=== PATIENT | male | born 1980 | race Caucasian/White ===

== ENCOUNTER 2017-08-25 09:29 | Outpatient (CLI) | payer MEDICAID | END 2017-08-25 09:30 | disposition critical access hospital (66) | LOC: EMS 09:29 | PROVIDERS: ATTEND Surgery | DX: R46.4 Slowness and poor responsiveness (principal) | CPT/HCPCS: A0425; A0429 ==

== ENCOUNTER 2017-08-25 09:47 | Emergency (ER) | payer MEDICAID ==
[2017-08-25 09:55] VITALS: BP 138/84
--- NOTE | 2017-08-25 09:56 | ED Physician Documentation ---
History of Present Illness - Stated complaint Stated Complaint: HEROIN USE - Chief complaint Chief Complaint: General - History obtained from History obtained from: Patient, EMS - History of Present Illness Timing: Today Pain level max: 0 Pain level now: 0 - Additonal information Additional information: Patient states that he used methamphetamine and heroin this morning, several hours ago and was sleeping in his car when the police came and woke him up. He got out of the car, did not require any intervention such as Narcan. At that point the police reportedly called EMS to take him to the hospital as they told him he would either have to go to the hospital or to [facility]. EMS transported the patient here. Patient currently has no complaints. He does not want to go to rehab. He is not suicidal or homicidal. Review of Systems Constitutional: denies: Fever Nose: denies: Rhinorrhea / runny nose, Congestion Respiratory: denies: Cough GI: denies: Nausea, Vomiting, Diarrhea Skin: denies: Rash Musculoskeletal: denies: Neck pain, Back pain Neurologic: denies: Headache PD PAST MEDICAL HISTORY - Past Medical History Past Medical History: No - Past Surgical History Past Surgical History: Yes Ortho: Other - Allergies Allergies/Adverse Reactions: Allergies Allergy/AdvReac Type Severity Reaction Status Date / Time No Known Drug Allergies Allergy Verified 06/09/14 10:41 - Social History Does the pt smoke?: Yes Smoking Status: Current every day smoker Does the pt drink ETOH?: No Does the pt have substance abuse?: No - Immunizations Immunizations are current?: Yes PD ED PE NORMAL - Vitals Vital signs reviewed: Yes - General General: Alert and oriented X 3, No acute distress, Well developed/nourished - HEENT HEENT: PERRL, Moist mucous membranes - Neck Neck: Supple, no meningeal sign - Cardiac Cardiac: RRR, Strong equal pulses - Respiratory Respiratory: No respiratory distress, Clear bilaterally - Abdomen Abdomen: Soft, Non tender, Non distended - Derm Derm: Warm and dry - Neuro Neuro: Alert and oriented X 3 - Psych Psych: Normal mood, Normal affect Results - Vitals Vitals: Vital Signs - 24 hr 08/25/17 09:49 Temperature 36.1 C L Heart Rate 103 H Respiratory 16 Rate Blood Pressure 138/84 H O2 Saturation 93 Oxygen O2 Source Room air PD MEDICAL DECISION MAKING - ED course Complexity details: considered differential, d/w patient ED course: Patient is a 36-year-old male with no acute emergency medical condition at this time. He is awake, alert, oriented 3. No SI or HI. He was given resources for chemical dependency as he does not want to go to rehab or detox at this time. Patient counseled regarding signs and symptoms for which I believe and urgent re-evaluation would be necessary. Patient with good understanding of and agreement to plan and is comfortable going home at this time This document was made in part using voice recognition software. While efforts are made to proofread this document, sound alike and grammatical errors may occur. Departure - Departure Disposition: 01 Home, Self Care Clinical Impression: Heroin use Condition: Good Instructions: ED Drug Abuse General Follow-Up: your,doctor in 1 week [Other] Comments: We recommend that you stop using methamphetamines and heroin. You were given resources today to help you quit. Discharge Date/Time: 08/25/17 09:58
== END 2017-08-25 09:58 | disposition home or self-care (01) ==
LOC: EDUNIT# → ED 09:47
DX: F11.90 Opioid use, unspecified, uncomplicated (principal); F17.200 Nicotine dependence, unspecified, uncomplicated
CPT/HCPCS: 99282; 99283

== ENCOUNTER 2019-12-20 17:53 | Emergency (ER) | payer MEDICAID ==
[2019-12-20] MEDS ORDERED: HYDROmorphone 1 MG/ML CARPUJECT IVP STA (18:20)
[2019-12-20] MEDS ORDERED: ONDANSETRON 4 MG/2 ML VIAL IVP STA (18:20)
[2019-12-20] MEDS ORDERED: SODIUM CHLORIDE 0.9% 1,000 ML IV STA (18:20)
--- NOTE | 2019-12-20 18:21 | ED Physician Documentation ---
PD HPI UPPER EXT INJURY - Stated complaint Stated Complaint: RT ARM INJ - Chief complaint Chief Complaint: Ext Problem - History obtained from History obtained from: Patient - Additonal information Additional information: He had a significant fall out of a tree landing on his right arm and has a deformity that is quite painful of the right wrist. Also milder pain of the right elbow and left hand. He is walking and bearing weight without issue. No head or neck injury. No intoxicating substances today. Review of Systems Ten Systems: 10 systems reviewed and negative Constitutional: reports: Reviewed and negative Throat: reports: Reviewed and negative Cardiac: reports: Reviewed and negative PD PAST MEDICAL HISTORY - Past Medical History Past Medical History: No - Past Surgical History Past Surgical History: Yes Ortho: Other - Present Medications Home Medications: Ambulatory Orders Medication Instructions Recorded Confirmed Oxycodone HCl/Acetaminophen 1 - 2 each PO Q6H PRN #14 tablet 12/20/19 [Percocet 5-325 mg Tablet] - Allergies Allergies/Adverse Reactions: Allergies Allergy/AdvReac Type Severity Reaction Status Date / Time No Known Drug Allergies Allergy Verified 12/20/19 18:04 - Social History Does the pt smoke?: Yes Smoking Status: Current every day smoker Does the pt drink ETOH?: No Does the pt have substance abuse?: No - Immunizations Immunizations are current?: Yes - POLST Patient has POLST: No PD ED PE NORMAL - Vitals Vital signs reviewed: Yes - General General: Alert and oriented X 3, No acute distress - HEENT HEENT: PERRL, EOMI - Neck Neck: Supple, no meningeal sign, No bony TTP - Cardiac Cardiac: RRR, No murmur - Respiratory Respiratory: No respiratory distress, Clear bilaterally - Abdomen Abdomen: Non tender - Back Back: No CVA TTP, No spinal TTP - Derm Derm: Normal color, Warm and dry - Extremities Extremities: Other (There is a significant deformity of the right wrist but seems neurovascularly intact in the right hand. No evidence of an open fracture. Mild tenderness over the epicondyles of the right elbow. The left fourth finger has an abrasion with mild underlying tenderness but no limited range of motion ) - Neuro Neuro: Alert and oriented X 3, Normal speech - Psych Psych: Normal mood, Normal affect Results - Vitals Vitals: Vital Signs - 24 hr 12/20/19 12/20/19 12/20/19 18:04 18:07 18:55 Temperature 36.1 C L 36.1 C L Heart Rate 86 86 81 Respiratory 16 16 16 Rate Blood Pressure 135/85 H 135/85 H 133/82 H O2 Saturation 96 100 100 12/20/19 12/20/19 19:07 19:13 Temperature Heart Rate 86 83 Respiratory 18 18 Rate Blood Pressure 165/94 H 170/89 H O2 Saturation 96 95 Oxygen O2 Source Nasal cannula - Rads (name of study) L Hand, right elbow, and right wrist Radiology: EMP read contemporaneously (Comminuted displaced intra-articular fracture of the right distal radius and probable dorsal radialcarpal dislocation) Procedures - Laceration (location) L 4th finger Length in cm: 1 Wound type: Linear, Into subcut fat Neurovascular status: Sensory intact, Motor intact, Vascular intact Wound Preparation: Irrigated copiously NS Skin layer closure: Nylon, Interrupted, Size #-0 - enter number (4-0), Sutures - enter # (2) Other: Tetanus UTD Complexity: Simple - Splint (location) RUE Splint applied by: Physician, Tech Type of splint: Fiberglass, Long arm, Sugar tong Other: Patient tolerated well, No complications, Neurovascular intact - Reduction Body part reduced: Right, Wrist Fracture or dislocation: Fracture dislocation Anesthesia: Conscious sedation Reduction aftercare: Alignment improved, Splint applied, Sling - Procedural sedation Sedation prep: Informed consent, Time out completed, PE performed, ASA 1 - healthy Sedation medications: propofol (200), ketamine (100) Patient status during sedation: Responds to tactile, Maintained airway Sedation recovery: Recovered uneventfully Time in sedation (Minutes): 15 PD MEDICAL DECISION MAKING - ED course ED course: Spoke with the on-call orthopedic surgeon, Dr Nunez, about the wrist injury, requests reduction and sedation and splinting and he will follow-up tomorrow. Departure - Departure Disposition: 01 Home, Self Care Clinical Impression: Fall from height of greater than 3 feet, Right elbow pain Fracture dislocation of wrist joint Qualifiers: Encounter type: initial encounter Fracture type: closed Laterality: right Qualified Code(s): S62.101A - Fracture of unspecified carpal bone, right wrist, initial encounter for closed fracture Laceration of left ring finger Qualifiers: Encounter type: initial encounter Damage to nail status: without damage Foreign body presence: without foreign body Qualified Code(s): S61.215A - Laceration without foreign body of left ring finger without damage to nail, initial encounter Condition: Good Record reviewed to determine appropriate education?: Yes Instructions: ED Laceration All, ED Fx Colles Wrist Redu Requ Follow-Up: Ryley Alonso MD [Provider Admit Priv/Credential] - Prescriptions: Oxycodone HCl/Acetaminophen [Percocet 5-325 mg Tablet] 1 - 2 each PO Q6H PRN #14 tablet PRN Reason: pain Comments: The orthopedic surgeon wants to see you tomorrow to arrange for a date for surgery. Call his office at 8 AM, his membership assistant Shanae will be aware of your case. Keep the splint on and dry. Do not remove it. Return for new or worsening symptoms. The sutures in your left fourth finger will need to come out in about 2 weeks.
[2019-12-20] MEDS ORDERED: PROPOFOL 200 MG/20 ML VIAL IVP STA (18:53)
--- NOTE | 2019-12-20 19:32 | XRAY Report ---
PROCEDURE: Elbow 3 View RT INDICATIONS: arm injury, hand inj TECHNIQUE: 3 views of the elbow were acquired. COMPARISON: None FINDINGS: Bones: No fractures or dislocations. No suspicious bony lesions. Soft tissues: No elbow joint effusion. No suspicious soft tissue calcifications. IMPRESSION: Intact right elbow. Reviewed by: Juanita Goodson MD on 12/20/2019 7:31 PM PDT Approved by: Juanita Goodson MD on 12/20/2019 7:31 PM PDT Station ID: [id number]
[2019-12-20] MEDS ORDERED: KETAMINE 500 MG/10 ML VIAL ONE (19:35)
--- NOTE | 2019-12-20 19:35 | XRAY Report ---
PROCEDURE: Wrist 3 View RT INDICATIONS: arm injury, hand inj TECHNIQUE: 4 views of the wrist were acquired. COMPARISON: None FINDINGS: Bones: There is an impaction fracture of the distal radius with extension to the articular surface. T here is mild comminution and moderate lateral displacement of the lateral fracture fragment. There is probably impaction and dorsal displacement of the radiocarpal alignment. There is likely an ulnar st yloid fracture however the distal fragment is not well seen. No suspicious bony lesions. Soft tissues: No suspicious soft tissue calcifications. IMPRESSION: 1. -punch type comminuted, displaced, intra-articular fracture of the distal radius. 2. Possible ulnar styloid fracture. 3. Probable dorsal radiocarpal dislocation. Reviewed by: Juanita Goodson MD on 12/20/2019 7:34 PM PDT Approved by: Juanita Goodson MD on 12/20/2019 7:34 PM PDT Station ID: [id number]
[2019-12-20] MEDS ORDERED: KETAMINE 500 MG/10 ML VIAL IVP STA (19:36)
--- NOTE | 2019-12-20 19:36 | XRAY Report ---
PROCEDURE: Hand 3 View LT INDICATIONS: arm injury, hand inj TECHNIQUE: 3 views of the hand(s) acquired. COMPARISON: None FINDINGS: Bones: No fractures or dislocations. No suspicious bony lesions. Soft tissues: No suspicious soft tissue calcifications. IMPRESSION: No fractures or foreign bodies. Reviewed by: Juanita Goodson MD on 12/20/2019 7:35 PM PDT Approved by: Juanita Goodson MD on 12/20/2019 7:35 PM PDT Station ID: [id number]
[2019-12-20] MEDS ORDERED: oxyCODONE/ACET 5/325 Prepack 4 PO STA (19:55)
[2019-12-20 20:15] VITALS: BP 148/88
--- NOTE | 2019-12-20 21:03 | XRAY Report ---
PROCEDURE: Wrist 2 View RT INDICATIONS: post reduction TECHNIQUE: 3 views of the wrist were acquired. COMPARISON: Films performed earlier the same day. FINDINGS: Bones: Splint material obscures fine bone detail. There has been improvement in alignment of the dist al radial intra-articular comminuted fracture. The radiocarpal alignment appears grossly normal. The ulnar styloid fracture is now visible and moderately displaced laterally. The radioulnar relationship is grossly normal.. No suspicious bony lesions. Soft tissues: No suspicious soft tissue calcifications. IMPRESSION: 1. Improved alignment of comminuted intra-articular distal radial fracture. 2. Grossly aligned radiocarpal articulation. 3. Displaced ulnar styloid fracture. Reviewed by: Juanita Goodson MD on 12/20/2019 9:01 PM PDT Approved by: Juanita Goodson MD on 12/20/2019 9:01 PM PDT Station ID: [id number]
== END 2019-12-20 20:16 | disposition home or self-care (01) ==
LOC: ED 17:53
DX: S61.215A Laceration without foreign body of left ring finger without damage to nail, initial encounter (principal); S52.591A Other fractures of lower end of right radius, initial encounter for closed fracture; S62.101A Fracture of unspecified carpal bone, right wrist, initial encounter for closed fracture; W14.XXXA Fall from tree, initial encounter; F17.200 Nicotine dependence, unspecified, uncomplicated
CPT/HCPCS: 12001; 25605; 73080; 73100; 73110; 73130; 96374; 99152; 99285; J1170; 94770

== ENCOUNTER 2019-12-21 12:23 | Outpatient (CLI) | payer MEDICAID | END 2019-12-21 12:24 | disposition home or self-care (01) | LOC: LAB 12:23 | PROVIDERS: ATTEND Orthopaedic Surgery | DX: Z01.818 Encounter for other preprocedural examination (principal); Z20.828 Contact with and (suspected) exposure to other viral communicable diseases ==

== ENCOUNTER 2019-12-23 10:46 | Day surgery (SDC) | payer MEDICAID ==
[2019-12-23] MEDS ORDERED: CELECOXIB 100 MG CAPSULE PO ONE (11:00)
[2019-12-23] MEDS ORDERED: ACETAMINOPHEN 1,000 MG/100 ML 100 ML IV ONE ×2 (11:00→13:18)
[2019-12-23] MEDS ORDERED: CEFAZOLIN SODIUM IN 0.9 % NACL 2 GM/100 ML BAG IV ONE (11:00)
[2019-12-23] MEDS ORDERED: LACTATED RINGERS 1,000 ML IV ONE ×2 (11:11→16:55)
--- NOTE | 2019-12-23 12:10 | ANESTHESIA ---
Pre-Anesthesia VS, & Labs - Diagnosis R displaced Radila fx, ulnar styloid fracture - Procedure ORIF R wrist Vital Signs: Temp Pulse Resp BP Pulse Ox 37.0 C 91 18 135/73 H 96 12/23/19 11:11 12/23/19 11:11 12/23/19 11:11 12/23/19 11:11 12/23/19 11:11 Height: 6 ft 5 in Weight (kg): 91.1 kg Body Mass Index: 23.8 BMI Classification: Healthy weight - NPO >8 hours - Lab Results Lab results reviewed: Yes Home Medications and Allergies Home Medications: Ambulatory Orders Ibuprofen [Motrin] 600 mg PO Q6H PRN 12/21/19 Ibuprofen [Motrin] 600 mg PO Q6H PRN 12/21/19 Allergies/Adverse Reactions: Allergies Allergy/AdvReac Type Severity Reaction Status Date / Time No Known Drug Allergies Allergy Verified 12/20/19 18:04 Anes History & Medical History - Anesthetic History Anesthesia Complications: reports: No previous complications Family history of Anesthesia Complications: Denies Family history of Malignant Hyperthermia: Denies - Medical History Cardiovascular: reports: None Pulmonary: reports: None Gastrointestinal: reports: None Urinary: reports: None Musculoskeletal: reports: None Endocrine/Autoimmune: reports: None Skin: reports: None Smoking Status: Current every day smoker Psychosocial: reports: Amphetamine (remote hx), Cannabis (remote hx) History of Cancer?: No - Surgical History Orthopedic: Other (R wrist tendon repair) Exam General: Alert, Oriented x3, Cooperative Dental: WNL Mouth Opening: Greater than 4 Fingerbreadths Neck Mobility: Normal Mallampati classification: I Thyromental Distance: greater than 6 cm Respiratory: Lungs clear, Normal breath sounds, No respiratory distress Cardiovascular: Regular rate Neurological: Normal speech Mental/Cognitive Status: Alert/Oriented X3, Normal for patient Cognitive Status: Within normal limits Plan Anesthesia Type: General, Supraclavicular Block Consent for Procedure(s) Verified and Reviewed: Yes Code Status: Attempt Resuscitation ASA classification: 2-Mild systemic disease Is this case an emergency?: No
[2019-12-23] MEDS ORDERED: ONDANSETRON 4 MG/2 ML VIAL IVP ONE (13:18)
[2019-12-23] MEDS ORDERED: PROPOFOL 200 MG/20 ML VIAL IVP ONE (13:18)
[2019-12-23] MEDS ORDERED: MIDAZOLAM 2 MG/2 ML VIAL IVP ONE (13:18)
[2019-12-23] MEDS ORDERED: LIDOCAINE-MPF 2% 5 ML VIAL IM ONE (13:18)
[2019-12-23] MEDS ORDERED: fentaNYL 100 MCG/2 ML VIAL IVP ONE (13:18)
[2019-12-23] MEDS ORDERED: DEXAMETHASONE 4 MG/ML VIAL IVP ONE (13:18)
--- NOTE | 2019-12-23 17:03 | OPERATIVE REPORT ---
Operative Report - General Procedure Date: 12/23/19 Planned Procedure: Open reduction internal fixation right wrist Pre-Op Diagnosis: Intra-articular dorsal fracture dislocation right distal radius Procedure Performed: Open reduction internal and external fixation with freeze-dried cancellus bone graft right distal radius Post Op Diagnosis: Same as preoperative diagnosis - Procedure Note Primary Surgeon: Ryley Alonso M.D. Secondary Surgeon: DEVANTE George Anesthesia Technique: Regional block Indications: 39-year-old gentleman who fell from a height, sustaining high-energy injury to right wrist. He sustained a intra-articular fracture of the right distal radius with dorsal radiocarpal dislocation. This is a dorsal Brock's fracture dislocation of the right distal radius. There was a intra-articular defectWith comminution. Findings: There was a dorsally comminuted intra-articular fracture right distal radius. The condition to be managed scaphoid fossa was disrupted and split sagittally and coronally function leading to at least 4 major pieces to the distal radius in addition to a comminuted metaphyseal defect below the articular cartilage defect of the distal radius. The radiocarpal joint seemed unstable as well and an external fixator was applied to ensure at the radiocarpal joint remained reduced and also help reduce stress to the articular cartilage defect Complications: None noted - Other Other Information/Narrative: Patient was brought to the operating room, placed in the supine position, arm placed on arm table. Right upper extremity was prepped and draped in a sterile manner in the usual fashion. A pneumatic tourniquet was applied to the proximal right arm. The tourniquet was applied over a protective sock to prevent any skin irritation from tourniquet. The C-arm image intensifier was utilized for imaging and had a sterile drape applied to the C arm head. Fingertrap traction was utilizedThat were sterilized.A improved reduction was achieved with tracti on. A dorsal longitudinal incision was made across the wrist joint. Care was taken to avoid the sensory cutaneous nerves of the superficial radial nerve. The third extensor compartment was incised and the extensor pollicis longus was transposed. The retinaculum was longitudinally divided and the fourth extensor compartment was elevated subperiosteally to expose the distal radius and the comminuted intra-articular defect. The radial styloid was fractured in at least 4Pieces. There was a dorsal and volar piece that was split sagittally at the intra-articular defect site and then again coronally. There was also a small dorsal piece of the distal radius that was retracted and this helped exposed the radiocarpal joint in addition to manual traction. The defect below the joint in the metaphyseal region of the distal radius was filled with freeze-dried cancellus bone chips and compressed with a bone tamp. The small piece of bone that had been detached was sutured to soft tissue overlying the joint of the distal radius. The small piece measures about 4 mm to 5 mm. The radial styloid was compressed with 2.062 inch K wires inserted from the styloid of likely across into the distal shaft. These 2 K wires provided good alignment and could be seen to reduce the intra-articular fragment quite well. There is still a very small defect in the joint but at least the defect was opposed nicely and stable. Intraoperative C-arm imaging was obtained in AP, lateral, Bleich as well as supination pronation views. There is a tourniquet had been used for about an hour and was deflated. Part of the retinaculum was closed. The subcutaneous tissue was closed with 2-0 Vicryl. The retinaculum was partially closed with 2-0 Vicryl. And the skin was closed with mima. to help stabiliz eThe radiocarpal joint and decrease stress to the articular surface, a wrist external fixator was applied. This was done with 4 half. The 2 shaft pins were done through the incision exposing the bone with periosteal elevator and then using the appropriate drill guide to achieve bicortical fixation. The same was done to the second metacarpal. Pin blocks and carbon fiber amadou was then inserted. Slight distraction was applied with the wrist in a relatively neutral position. There was good stability and alignment of the fracture. There was a mild defect at the joint surface but this was felt to be acceptable considering the preoperative defect. The radiocarpal joint was well aligned and the wrist joint stable. The pin sites were covered, volar fiberglass splint applied and a bulky dressing was applied to the entire right forearm. The estimated blood loss was less than 25 cc and he tolerated procedure well pins measuring 3 mm
[2019-12-23] MEDS ORDERED: fentaNYL 100 MCG/2 ML VIAL IVP PRN (17:10)
[2019-12-23] MEDS ORDERED: ONDANSETRON 4 MG/2 ML VIAL IVP PRN (17:10)
[2019-12-23] MEDS ORDERED: METOCLOPRAMIDE 10 MG/2 ML VIAL IVP PRN (17:10)
[2019-12-23] MEDS ORDERED: MORPHINE 2 MG/ML CARPUJECT IVP PRN (17:10)
[2019-12-23] MEDS ORDERED: HYDROmorphone 0.5 MG/0.5 ML SYRINGE IVP PRN (17:10)
[2019-12-23] MEDS ORDERED: ePHEDrine 50 MG/ML VIAL IVP PRN (17:10)
[2019-12-23] MEDS ORDERED: ATROPINE ABBOJECT 1 MG/10 ML SYRINGE IVP PRN (17:10)
[2019-12-23] MEDS ORDERED: NALOXONE 0.4 MG/ML VIAL IVP PRN (17:10)
[2019-12-23] MEDS ORDERED: HYDROcod/ACETAM 5/325 MG TABLET PO PRN (17:16)
[2019-12-23] MEDS ORDERED: HYDROcod/ACETAM 10 MG/325 MG TABLET PO PRN (17:16)
[2019-12-23] MEDS ORDERED: KETOROLAC 15 MG/ML VIAL IVP STA (17:16)
--- NOTE | 2019-12-23 17:24 | XRAY Report ---
PROCEDURE: OR C-Arm Procedure INDICATIONS: WRIST ORIF TECHNIQUE: Intraoperative fluoroscopic assistance was utilized in ORIF of complex comminuted displace d distal radius fractures. K wire fracture fixation was performed, excellent anatomic alignment estab lished at termination of the study. COMPARISON: Prior trauma plain films. FINDINGS: Normal alignment established after ORIF of distal radius comminuted fractures now in virtual anatomic alignment. IMPRESSION: Excellent anatomic alignment achieved after ORIF. Reviewed by: Marko Sandoval MD on 12/23/2019 5:22 PM PDT Approved by: Marko Sandoval MD on 12/23/2019 5:22 PM PDT Station ID: [id number]
[2019-12-23] MEDS ORDERED: LACTATED RINGERS 1,000 ML IV SCH (18:00)
[2019-12-23 18:12] VITALS: BP 135/75
== END 2019-12-23 10:47 | disposition home or self-care (01) ==
LOC: SDS 10:46
PROVIDERS: ATTEND Orthopaedic Surgery
DX: S52.561A Barton's fracture of right radius, initial encounter for closed fracture (principal); F17.210 Nicotine dependence, cigarettes, uncomplicated
CPT/HCPCS: 20690; 25609; A9270; C1713; J0131; J0690; J7120

== ENCOUNTER 2019-12-31 07:38 | Outpatient (CLI) | payer MEDICAID ==
--- NOTE | 2019-12-31 16:17 | XRAY Report ---
PROCEDURE: Elbow 2 View RT INDICATIONS: RIGHT ELBOW PAIN TECHNIQUE: 2 views of the elbow were acquired. COMPARISON: None FINDINGS: Bones: No fractures or dislocations. No suspicious bony lesions. Soft tissues: No elbow joint effusion. No suspicious soft tissue calcifications. IMPRESSION: No evidence acute bony abnormality of the right elbow. Reviewed by: Yariel Blackburn MD on 12/31/2019 4:16 PM PDT Approved by: Yariel Blackburn MD on 12/31/2019 4:16 PM PDT Station ID: [id number]
--- NOTE | 2019-12-31 16:24 | XRAY Report ---
PROCEDURE: Wrist 3 View RT INDICATIONS: RIGHT WRIST FRACTURE, POST-OP TECHNIQUE: 4 views of the wrist were acquired. COMPARISON: 12/20/2019 FINDINGS: Bones: Interval K wire fixation of a markedly comminuted distal radius fracture extending to the jason cular surface. There is improved alignment with displacement still present. An external fixator is pr esent at the second metacarpal shaft, as well as in the radial shaft. No radiographic evidence of com plications. No evidence of hardware failure or loosening. No interval fractures or dislocations. No s uspicious bony lesions. Scaphoid view: Scaphoid intact. Soft tissues: No suspicious soft tissue calcifications. IMPRESSION: Interval K wire fixation of a severely comminuted distal radius fracture extending to the articular s urface. There is a degree of displacement still present. Reviewed by: Yariel Blackburn MD on 12/31/2019 4:22 PM PDT Approved by: Yariel Blackburn MD on 12/31/2019 4:22 PM PDT Station ID: [id number]
== END 2019-12-31 07:39 | disposition home or self-care (01) ==
LOC: DI.WCP 07:38
PROVIDERS: ATTEND Orthopaedic Surgery
DX: M25.521 Pain in right elbow (principal); S52.571A Other intraarticular fracture of lower end of right radius, initial encounter for closed fracture

== ENCOUNTER 2020-01-18 04:52 | Emergency (ER) | payer MEDICAID ==
[2020-01-18] MEDS ORDERED: ceFAZolin 2 GM in SODIUM CHLORIDE 0.9% 100ML 100 ML IV STA (05:14)
[2020-01-18] MEDS ORDERED: ceFAZolin 1 GM VIAL ONE (05:47)
--- NOTE | 2020-01-18 06:56 | ED Physician Documentation ---
History of Present Illness - Stated complaint Stated Complaint: R HAND SWELLING - Chief complaint Chief Complaint: Wound - History obtained from History obtained from: Patient - History of Present Illness Timing: How many days ago (3) - Additonal information Additional information: 39 uy/o male with a comminuted fracture dislocation of the right wrist has had a surgical repair with placement of an external fixiter has developed some redness, swelling and drainage from the hardware pins. He indicates his puppy knocked the pins and twisted them as well. Review of Systems Constitutional: denies: Fever Respiratory: denies: Cough GI: denies: Vomiting, Diarrhea PD PAST MEDICAL HISTORY - Past Medical History Past Medical History: Yes Cardiovascular: None Respiratory: None Endocrine/Autoimmune: None GI: None : None HEENT: None Psych: Bipolar disorder, ADD/ADHD Musculoskeletal: None Derm: None - Past Surgical History Past Surgical History: Yes Ortho: Other - Present Medications Home Medications: Ambulatory Orders Medication Instructions Recorded Confirmed Cephalexin [Keflex] 500 mg PO Q6H #28 capsule 01/18/20 - Allergies Allergies/Adverse Reactions: Allergies Allergy/AdvReac Type Severity Reaction Status Date / Time No Known Drug Allergies Allergy Verified 01/18/20 05:08 - Social History Does the pt smoke?: Yes Smoking Status: Current every day smoker Does the pt drink ETOH?: No Does the pt have substance abuse?: No - Immunizations Immunizations are current?: Yes - POLST Patient has POLST: No PD ED PE NORMAL - Vitals Vital signs reviewed: Yes (hypertensive) - General General: Alert and oriented X 3, No acute distress, Well developed/nourished - HEENT HEENT: Atraumatic, PERRL, EOMI - Respiratory Respiratory: No respiratory distress - Derm Derm: Normal color, Warm and dry, No rash - Extremities Extremities: Other (The right forearm has an external fixiter on and there is general swelling and redness to the insertion sites with the fixiter. There is minimal drainage. The pins in the mid forearm are bent and twisted. 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 There is dislocation of the wrist. ) PD MEDICAL DECISION MAKING - ED course Complexity details: reviewed old records, reviewed results, re-evaluated patient, considered differential, d/w patient ED course: 39 y/o male with hardware in place appears to have superficial infection to the skin with normal WBC, ESR and mildly elevated CRP. A culture of the wound is obtained and he is given a dose of ancef 2gm IV. We will start him on some keflex and have him follow up with Dr. Corbett. Dr. Corbett was contacted in the case and recommends follow up in clinic. Departure - Departure Disposition: 01 Home, Self Care Clinical Impression: Superficial skin infection Condition: Stable Follow-Up: Ryley Alonso MD [Provider Admit Priv/Credential] - Prescriptions: Cephalexin [Keflex] 500 mg PO Q6H #28 capsule Discharge Date/Time: 01/18/20 07:12
[2020-01-18 07:07] VITALS: BP 138/86
[2020-01-18 18:57] LABS: ALBUMIN 4.1 g/dL (3.2-5.5); ALBUMIN/GLOBULIN RATIO 1.1 (1.0-2.2); BILIRUBIN,TOTAL 0.7 mg/dL (0.2-1.0); CALCIUM 9.3 mg/dL (8.5-10.3); CRP - C-REACTIVE PROTEIN 1.7 mg/dL (0-1.0)
[2020-01-18 19:47] LABS: BASOPHILS % (AUTO) 0.2 %; EOSINOPHILS # (AUTO) 0.1 10^3/uL (0.0-0.7); EOSINOPHILS % (AUTO) 1.2 %; HGB - HEMOGLOBIN 14.2 g/dL (14.0-18.0); LYMPHOCYTES # (AUTO) 0.9 10^3/uL (1.5-3.5); LYMPHOCYTES % (AUTO) 16.1 %; MEAN CORPUSCULAR HEMOGLOBIN 29.8 pg (27.0-31.0); MEAN CORPUSCULAR HGB CONC 34.1 g/dL (32.0-36.0); MEAN CORPUSCULAR VOLUME 87.2 fL (80.0-94.0); MEAN PLATELET VOLUME 9.5 fL (7.4-11.4); MONOCYTES # (AUTO) 0.7 10^3/uL (0.0-1.0); MONOCYTES % (AUTO) 11.8 %; NEUTROPHILS # (AUTO) 4.1 10^3/uL (1.5-6.6); NEUTROPHILS % (AUTO) 70.5 %; PLT - PLATELET COUNT 231 10^3/uL (130-450); RED BLOOD COUNT 4.77 10^6/uL (4.70-6.10); RED CELL DISTRIBUTION WIDTH 13.7 % (12.0-15.0); WHITE BLOOD COUNT 5.8 x10^3/uL (4.8-10.8)
--- NOTE | 2020-01-19 07:58 | XRAY Report ---
PROCEDURE: Forearm RT INDICATIONS: pus from external fixitor TECHNIQUE: 2 views of the forearm were acquired. COMPARISON: Wrist radiographs dated 12/31/2019 FINDINGS: Bones: Postsurgical changes are seen from fixation of a previously seen comminuted distal radial frac ture with percutaneous pins and an external fixation device. The metallic hardware is intact. When co mpared to the radiographs from 12/31/2019, there is mild collapse of the distal radial articular surfa ce with proximal migration of the proximal carpal row and resulting positive ulnar variance. Mild vol ar subluxation of the proximal carpal row has slightly increased when compared to the prior study. A minimally displaced ulnar styloid fracture does not appear significantly changed. No definite new cor tical destruction is seen to suggest osteomyelitis. Soft tissues: Soft tissue edema is seen surrounding the wrist, more prominent at the radial aspect. IMPRESSION: Postsurgical changes are again seen from fixation of a comminuted distal radial fracture with interva l collapse of the radial articular surface. No definite osseous destructive changes are seen. A minim ally displaced ulnar styloid fracture appears unchanged. Findings were discussed with Dr. Palacio of the Emergency Department by telephone on 01/18/2020 at 8 :15 AM. This dictation is being submitted the following day due to system downtime. Reviewed by: Keshawn Arango MD on 01/19/2020 7:56 AM PDT Approved by: Keshawn Arango MD on 01/19/2020 7:56 AM PDT Station ID: [id number]
== END 2020-01-18 07:12 | disposition home or self-care (01) ==
LOC: ED 04:52
DX: L08.9 Local infection of the skin and subcutaneous tissue, unspecified (principal); S52.501D Unspecified fracture of the lower end of right radius, subsequent encounter for closed fracture with routine healing; X58.XXXD Exposure to other specified factors, subsequent encounter; R03.0 Elevated blood-pressure reading, without diagnosis of hypertension; F17.200 Nicotine dependence, unspecified, uncomplicated
CPT/HCPCS: 36415; 80053; 83605; 83690; 85025; 85651; 86140; 87040; 87070; 87181; 87205; 96365; 99284

== ENCOUNTER 2020-01-21 17:03 | Outpatient (CLI) | payer MEDICAID ==
--- NOTE | 2020-01-21 17:12 | XRAY Report ---
PROCEDURE: Forearm RT INDICATIONS: R FOREARM INJURY TECHNIQUE: 2 views of the forearm were acquired. COMPARISON: 12/31/2019 FINDINGS: Bones: Status post external fixation of the right forearm with external fixator device transfixed at the mid diaphysis of the right radius and the second metacarpal. Status post percutaneous pin fixati on of severely comminuted, intra-articular fracture of the distal right radius. Since the comparison study, the lunate and comminuted distal radial fracture fragments appear to demonstrate one shaft wid th of volar displacement and mild foreshortening. No evidence for hardware fracture. No suspicious b matt lesions. Soft tissues: No suspicious soft tissue calcifications or masses. IMPRESSION: Status post percutaneous pin fixation of severely comminuted, intra-articular right distal radial fra cture with external fixator device transfixed at the right mid radial diaphysis and right second meta carpal. There has been interval volar displacement of the lunate and associated comminuted distal rad ial fracture fragments. No evidence for hardware failure. Reviewed by: Thad Olvera MD on 01/21/2020 5:10 PM PDT Approved by: Thad Olvera MD on 01/21/2020 5:10 PM PDT Station ID: [id number]
== END 2020-01-21 23:59 | disposition home or self-care (01) ==
LOC: DI.WCP 17:03
PROVIDERS: ATTEND Orthopaedic Surgery
DX: S52.571A Other intraarticular fracture of lower end of right radius, initial encounter for closed fracture (principal)

== ENCOUNTER 2020-01-29 14:45 | Emergency (ER) | payer MEDICAID ==
[2020-01-29] MEDS ORDERED: VANCOMYCIN INJ 1 GM in SODIUM CHLORIDE 0.9% 500 ML IV STA (15:31)
[2020-01-29] MEDS ORDERED: HYDROmorphone 1 MG/ML CARPUJECT IVP STA (15:31)
[2020-01-29] MEDS ORDERED: AMPICILLIN/SULBACTAM 3 GM in SODIUM CHLORIDE 0.9% MINIBAG 100 ML IV STA (15:31)
[2020-01-29] MEDS ORDERED: VANCOMYCIN INJ 2 GM in SODIUM CHLORIDE 0.9% 500 ML IV STA (15:43)
[2020-01-29 15:54] LABS: BASOPHILS % (AUTO) 0.2 %; EOSINOPHILS # (AUTO) 0.1 10^3/uL (0.0-0.7); EOSINOPHILS % (AUTO) 0.7 %; HGB - HEMOGLOBIN 13.3 g/dL (14.0-18.0); LYMPHOCYTES % (AUTO) 9.1 %; MEAN CORPUSCULAR HEMOGLOBIN 28.9 pg (27.0-31.0); MEAN CORPUSCULAR HGB CONC 32.9 g/dL (32.0-36.0); MEAN CORPUSCULAR VOLUME 87.8 fL (80.0-94.0); MEAN PLATELET VOLUME 9.4 fL (7.4-11.4); MONOCYTES # (AUTO) 0.9 10^3/uL (0.0-1.0); MONOCYTES % (AUTO) 7.7 %; NEUTROPHILS # (AUTO) 9.3 10^3/uL (1.5-6.6); NEUTROPHILS % (AUTO) 81.9 %; PLT - PLATELET COUNT 229 10^3/uL (130-450); RED CELL DISTRIBUTION WIDTH 13.5 % (12.0-15.0); WHITE BLOOD COUNT 11.3 x10^3/uL (4.8-10.8)
--- NOTE | 2020-01-29 16:05 | XRAY Report ---
PROCEDURE: Wrist 3 View RT INDICATIONS: R hand swelling, erythema, ex fix in place TECHNIQUE: 3 views of the wrist were acquired. COMPARISON: 01/21/2020, 01/18/2020, 12/31/2019, 12/23/2019, 12/20/2019 FINDINGS: 'S images demonstrate unchanged configuration of the external fixator device with fixation pins at th e mid diaphysis of the radius and in the second metacarpal. Yoly wires in the distal radius are also redemonstrated. Comminuted distal radial fracture fragments are not significantly changed. Lunat e fracture fragments and ulnar fracture fragments are also unchanged. There is no obvious complicatin g hardware features. No destructive or lytic osseous lesion. IMPRESSION: External fixation hardware similar to the prior study. Bony alignment is not significantly changed. Reviewed by: David Santiago MD on 01/29/2020 4:04 PM PDT Approved by: David Santiago MD on 01/29/2020 4:04 PM PDT Station ID: [id number]
[2020-01-29 16:07] LABS: ALBUMIN 3.8 g/dL (3.2-5.5); ALBUMIN/GLOBULIN RATIO 0.9 (1.0-2.2); BILIRUBIN,TOTAL 1.3 mg/dL (0.2-1.0); CALCIUM 9.4 mg/dL (8.5-10.3); CREATININE 0.9 mg/dL (0.6-1.2); TOTAL PROTEIN 8.1 g/dL (6.7-8.2)
[2020-01-29 16:12] VITALS: BP 160/130
[2020-01-29] MEDS ORDERED: SULFAMETH/TRIMETH DS 800/160 MG TABLET PO STA (16:22)
--- NOTE | 2020-01-29 16:25 | ED Physician Documentation ---
History of Present Illness - Stated complaint Stated Complaint: RT ARM SWELLING - Chief complaint Chief Complaint: Wound - History obtained from History obtained from: Patient - History of Present Illness Timing: Today Pain level max: 4 Pain level now: 4 - Additonal information Additional information: Patient is a 39-year-old male who presents to the emergency department with right hand pain. He states that about a month ago he had surgery on the right hand and wrist. Currently has an external fixator in place. Has been treated for cellulitis. He fell last night, reinjuring the hand. Increased swelling and redness today. Came in for evaluation. Worse with movement, better with rest Review of Systems Constitutional: denies: Fever, Chills Nose: denies: Rhinorrhea / runny nose, Congestion GI: denies: Vomiting, Diarrhea Musculoskeletal: denies: Neck pain, Back pain Neurologic: denies: Focal weakness, Numbness, Headache PD PAST MEDICAL HISTORY - Past Medical History Cardiovascular: None Respiratory: None Endocrine/Autoimmune: None GI: None : None HEENT: None Psych: Bipolar disorder, ADD/ADHD Musculoskeletal: None Derm: None - Past Surgical History Past Surgical History: Yes Ortho: Other - Present Medications Home Medications: Ambulatory Orders Medication Instructions Recorded Confirmed Cephalexin [Keflex] 500 mg PO Q6H #28 capsule 01/18/20 Amox/Clav 875/125 [Augmentin] 1 each PO Q12H #20 tablet 01/29/20 Oxycodone HCl/Acetaminophen 1 - 2 each PO Q6H PRN #7 tablet 01/29/20 [Percocet 5-325 mg Tablet] Sulfamethox/Trimeth 800/160 1 each PO BID #14 tablet 01/29/20 [Bactrim Ds 800/160] - Allergies Allergies/Adverse Reactions: Allergies Allergy/AdvReac Type Severity Reaction Status Date / Time No Known Drug Allergies Allergy Verified 01/18/20 05:08 - Social History Does the pt smoke?: Yes Smoking Status: Current every day smoker Does the pt drink ETOH?: No Does the pt have substance abuse?: No - Immunizations Immunizations are current?: Yes - POLST Patient has POLST: No PD ED PE NORMAL - Vitals Vital signs reviewed: Yes - General General: Alert and oriented X 3, No acute distress - HEENT HEENT: Moist mucous membranes - Neck Neck: Supple, no meningeal sign - Derm Derm: Warm and dry - Extremities Extremities: Other (TTP over the R hand and wrist. moderate erythema and swelling, no drainage. NVI. ex fix in place.) - Neuro Neuro: Alert and oriented X 3 Results - Vitals Vitals: Vital Signs - 24 hr 01/29/20 01/29/20 14:47 16:11 Temperature 36.5 C 36.8 C Heart Rate 115 H 112 H Respiratory 16 18 Rate Blood Pressure 135/81 H 160/130 H O2 Saturation 99 98 Oxygen O2 Source Room air - Labs Labs: Laboratory Tests 01/29/20 01/29/20 01/29/20 15:40 15:40 15:40 WBC 11.3 H RBC 4.60 L Hgb 13.3 L Hct 40.4 L MCV 87.8 MCH 28.9 MCHC 32.9 RDW 13.5 Plt Count 229 MPV 9.4 Neut # (Auto) 9.3 H Lymph # (Auto) 1.0 L Vernon # (Auto) 0.9 Eos # (Auto) 0.1 Baso # (Auto) 0.0 Absolute Nucleated RBC 0.00 Nucleated RBC % 0.0 Sodium 135 Potassium 3.6 Chloride 99 L Carbon Dioxide 25 Anion Gap 11.0 BUN 26 H Creatinine 0.9 Estimated GFR (MDRD) 94 Glucose 84 Lactic Acid 0.6 Calcium 9.4 Total Bilirubin 1.3 H AST 34 ALT 67 H Alkaline Phosphatase 131 H Total Protein 8.1 Albumin 3.8 Globulin 4.3 H Albumin/Globulin Ratio 0.9 L - Rads (name of study) R Wrist xray Radiology: Prelim report reviewed, EMP read contemporaneously, See rad report (External fixation hardware similar to the prior study. Bony alignment is not significantly changed.) PD MEDICAL DECISION MAKING - ED course Complexity details: reviewed results, re-evaluated patient, considered differential, d/w patient, d/w [facility] ED course: Patient with cellulitis of the R hand. Dr. Leonard, orthopedics was consulted. He came and evaluated the patient. The patient was given IV unasyn. He was given oral bactrim as he refused IV Vanco because of a dinner tonight. Understands the risk of infection and loss of limb/lifestyle/sepsis/. Patient will follow- up with orthopedics on Saturday, Dr. Alonso. Patient is well-appearing, nontoxic. Afebrile. Patient counseled regarding signs and symptoms for which I believe and urgent re-evaluation would be necessary. Patient with good understanding of and agreement to plan and is comfortable going home at this time This document was made in part using voice recognition software. While efforts are made to proofread this document, sound alike and grammatical errors may occur. Departure - Departure Disposition: 01 Home, Self Care Clinical Impression: Cellulitis Qualifiers: Site of cellulitis: extremity Site of cellulitis of extremity: upper extremity Laterality: right Qualified Code(s): L03.113 - Cellulitis of right upper limb Infection at site of external fixator pin Qualifiers: Encounter type: initial encounter Qualified Code(s): T84.7XXA - Infection and inflammatory reaction due to other internal orthopedic prosthetic devices, implants and grafts, initial encounter Condition: Good Instructions: ED Infec Skin Cellulitis Follow-Up: Ryley Alonso MD [Provider Admit Priv/Credential] - Prescriptions: Amox/Clav 875/125 [Augmentin] 1 each PO Q12H #20 tablet Sulfamethox/Trimeth 800/160 [Bactrim Ds 800/160] 1 each PO BID #14 tablet Oxycodone HCl/Acetaminophen [Percocet 5-325 mg Tablet] 1 - 2 each PO Q6H PRN #7 tablet PRN Reason: pain Comments: Take all antibiotics until gone. You need to follow-up with Dr. Alonso on Saturday. Return if you worsen including redness, swelling or drainage from the site. Also return for fevers. Discharge Date/Time: 01/29/20 17:02
--- NOTE | 2020-01-29 18:48 | CONSULTATION NOTE ---
DATE OF SERVICE: 01/29/2020 Physician: Arvind Leonard MD REFERRING PHYSICIAN: Dr. Pako Back of the emergency room department. CHIEF COMPLAINT: "I broke my right wrist a month ago." HISTORY OF PRESENT ILLNESS: Patient is a right-hand dominant, male who about 5 weeks ago f ell off of a tree over 10 feet off the ground, landing on his outstretched right upper extremity. He sustained a comminuted right dominant distal radius fracture. He was treated by Dr. Alonso at [facility] [place]. As a result of this injury, he had a closed reduction and application of external fixator wi th supplemental pin fixation. He had been followed by Dr. Alonso since the surgery. He has had wh at sounds like a mild cellulitis about the wrist that was treated with a 5-day course of Keflex. He has been off the antibiotics; however, for about a week's time. States that he has been afebrile. L ast seen by Dr. Alonso about 12 days ago. The thought was he would come to the clinic to see Dr. Demarco youngblood this coming Saturday or in 3 days' where consideration to remove the external fixator would be made. Last night; however, patient broke up a dog fight, and as a result of that, stressed his fracture. H e has noted some redness and swelling around his fracture. No fevers or chills noted. Has had some scant drainage that he has had for some time around his pin tracts. No new distal weakness and numbn ess noted, though he does have some restricted motion of his fingers he has had since the time of his accident. PHYSICAL EXAMINATION: Shows the patient was afebrile. Examination of his right upper extremity show s some generalized swelling and erythema involving his distal forearm and wrist region. Pin tracts o f his external fixator and the intraarticular pins that were placed in the distal radius show minimal serosanguineous drainage present. Some generalized tenderness on palpation around the wrist and the external fixator, but no gross looseness was noted of the pins. Neurovascularly, he does have some limited motion of his digits noted. Sensation appeared to be grossly intact in his digits to light t ouch. IMAGING: X-rays that were taken shows little interval changes in the position of his fracture of the hardware compared to films taken about 12 days ago. ASSESSMENT 1. Status post closed reduction and external fixator application with minimal pin fixation of a comm inuted right dominant distal radius fracture - now about 5 weeks out. 2. Persistent cellulitis. PLAN: Patient was afebrile and had a white count of 11,300 on presentation to the emergency room lia anthony. We will empirically cover him with some antibiotics in case this is a flare-up of a cellulitis t hat he has had from his previous surgery. He will keep his scheduled appointment to see Dr. Alonso on Saturday for followup of his fracture. Should he develop a fever or start noticing more drainage o r increased pain over the weekend, he will return to the clinic for reevaluation. Otherwise, he will followup with Dr. Alonso as planned on Saturday. TD: 01/29/2020 16:18
== END 2020-01-29 17:02 | disposition home or self-care (01) ==
LOC: ED 14:45
DX: L03.113 Cellulitis of right upper limb (principal); T84.7XXA Infection and inflammatory reaction due to other internal orthopedic prosthetic devices, implants and grafts, initial encounter; Y83.8 Other surgical procedures as the cause of abnormal reaction of the patient, or of later complication, without mention of misadventure at the time of the procedure; F17.200 Nicotine dependence, unspecified, uncomplicated
CPT/HCPCS: 36415; 73110; 80053; 83605; 85025; 87040; 96365; 96375; 99284; A9270; J1170

== ENCOUNTER 2020-02-01 12:31 | Outpatient (CLI) | payer MEDICAID ==
--- NOTE | 2020-02-01 14:15 | XRAY Report ---
PROCEDURE: Wrist 3 View RT INDICATIONS: RIGHT RADIUS FRACTURE TECHNIQUE: 3 views of the wrist were acquired. COMPARISON: X-ray right wrist, 3 views, 01/29/2020, 12/31/2019, and 12/20/2019. X-ray right forearm, 1 and 01/18/2020. FINDINGS: Bones: Interval removal of external fixation. There is complex intra-articular fracture involving th e distal radial metaphysis with displacement. I'm and appears unchanged from the last exam. The fract ure lines are less distinct. There is an ulnar styloid fracture with displacement. No suspicious bon y lesions. Soft tissues: No suspicious soft tissue calcifications. IMPRESSION: 1. Complex intra-articular fracture of the distal radial metaphysis. There is interval removal of ext ernal fixation. The alignment appears unchanged since last exam. 2. Ulnar styloid fracture. Reviewed by: Tasneem San MD on 02/01/2020 2:13 PM PDT Approved by: Tasneem San MD on 02/01/2020 2:13 PM PDT Station ID: [id number]
== END 2020-02-01 23:59 | disposition home or self-care (01) ==
LOC: DI.WCP 12:31
PROVIDERS: ATTEND Orthopaedic Surgery
DX: S52.571D Other intraarticular fracture of lower end of right radius, subsequent encounter for closed fracture with routine healing (principal); S52.611A Displaced fracture of right ulna styloid process, initial encounter for closed fracture